=== PATIENT | female | born 1935 | race Caucasian/White ===

== ENCOUNTER 2024-05-24 09:25 | Emergency (ER) | payer OTHER, MEDICARE ==
[2024-05-24 09:49] LABS: Absolute Eosinophils 0.1 K/uL (0-0.5); Absolute Lymphocytes (CBC) 1.4 K/uL (0.7-4.9); Absolute Monocytes 0.6 K/uL (0.1-1.3); Absolute Neutrophil 4.7 K/uL (1.8-8.0); Basophils % 0.6 % (0-1.3); Eosinophils % 1.1 % (0-4.4); Hematocrit 39.4 % (36.0-45.0); Hemoglobin 12.9 g/dL (12.0-15.0); Lymphocytes % 20.8 % (15.3-44.8); MCH 31.4 pg (27.0-35.0); MCHC 32.6 g/dL (32.0-36.0); MCV 96.1 fL (80-100); MPV 9.3 fL (7.6-11.3); Monocytes % 9.3 % (3.3-12.3); Neutrophils % 68.2 % (41.7-73.7); Nucleated Red Blood Cells % 0.1 % (0-0); Platelets 168 thou/uL (152-406); Red Cell Distribution Width 14.1 % (12.1-15.2)
[2024-05-24] MEDS ORDERED: NA CHLORIDE 0.9% 1,000 ML ONE (09:55)
[2024-05-24 09:57] LABS: PT Prothrombin Time 18.4 SECONDS (9.4-12.5); Protime INR 1.67
[2024-05-24 10:07] LABS: Albumin 3.4 g/dL (3.4-5.0); Albumin/Globulin Ratio 0.9 (1.1-1.8); Anion Gap 8.2 mEq/L (5.0-15.0); Bilirubin Direct 0.3 mg/dL (0-0.2); Bilirubin Indirect, Calculated 0.5 mg/dL (0.2-0.8); Bilirubin Total 0.8 mg/dL (0.2-1.0); Globulin 3.6 g/dL (2.3-3.5); Magnesium 2.3 mg/dL (1.6-2.4); Potassium 4.2 mEq/L (3.5-5.1); Troponin High Sensitivity 11.1 pg/mL (<58.9)
--- NOTE | 2024-05-24 10:43 | RAD REPORT ---
EXAMINATION: ONE VIEW CHEST XR CLINICAL INDICATION: COUGH TECHNIQUE: Frontal chest projection is submitted. Examination is limited by patient positioning and t echnique. COMPARISON: 07/12/2023 FINDINGS: Mild interstitial pulmonary edema is seen. The heart is mildly enlarged in size. No displaced fractur es identified. IMPRESSION: Mild CHF.
[2024-05-24 10:57] LABS: Thyroid Stimulating Hormone 4.76 uIU/mL (0.358-3.740)
[2024-05-24] MEDS ORDERED: METOPROLOL TAR 50 MG TAB ONE (11:02)
[2024-05-24] MEDS ORDERED: FUROSEMIDE 20 MG/ 2ML VIAL ONE (11:02)
[2024-05-24] MEDS ORDERED: METOPROLOL TARTRATE 5 MG/5 ML INJ IV ONE (11:02)
--- NOTE | 2024-05-24 11:54 | EDPHYS ---
Physician Documentation [facility] Name: Argenis Jacome Age: 88 yrs Sex: Female : 1935 Arrival Date: 05/24/2024 Time: 09:25 Bed 6 Private MD: ED Physician Ko Viera HPI: 05/24 11:45 This 88 yrs old Female presents to ER via Ambulatory with complaints of chester Weakness, Fast heart rate. 11:45 The patient presents to the emergency department with weakness of the. chester Historical: - Allergies: 10:54 Digoxin (unable to eat ); aa5 - Home Meds: 10:55 simvastatin 40 mg Oral tablet every day at bedtime [Active]; losartan 25 mg oral tablet aa5 daily [Active]; sertraline 25 mg oral tablet daily [Active]; Xarelto 10 mg oral tablet daily [Active]; 13:00 Metoprolol Tartrate Oral [Active]; aa5 - PMHx: 09:39 Atrial fibrillation; Depression; High Cholesterol; jl7 - Immunization history:: Adult Immunizations unknown. - Infectious Disease History:: Denies. - Social history:: Smoking status: Patient denies any tobacco usage or history of. ROS: 11:47 Constitutional: Negative for fever, chills, and weight loss, Eyes: Negative for injury, chester pain, redness, and discharge, ENT: Negative for injury, pain, and discharge, Neck: Negative for injury, pain, and swelling, Abdomen/GI: Negative for abdominal pain, nausea, vomiting, diarrhea, and constipation, Back: Negative for injury and pain, : Negative for injury, bleeding, discharge, and swelling, MS/Extremity: Negative for injury and deformity, Skin: Negative for injury, rash, and discoloration, Neuro: Negative for headache, weakness, numbness, tingling, and seizure, Psych: Negative for depression, anxiety, suicide ideation, homicidal ideation, and hallucinations, Allergy/Immunology: Negative for hives, rash, and allergies, Endocrine: Negative for neck swelling, polydipsia, polyuria, polyphagia, and marked weight changes, Hematologic/Lymphatic: Negative for swollen nodes, abnormal bleeding, and unusual bruising, 11:47 Cardiovascular: Positive for chest pain, palpitations, 11:47 Cardiovascular: Positive for 11:47 Respiratory: Positive for cough, with no reported sputum, shortness of breath, 11:49 Cardiovascular: Positive for chester Exam: 11:49 Constitutional: This is a well developed, well nourished patient who is awake, alert, chester and in no acute distress. Head/Face: Normocephalic, atraumatic. Eyes: Pupils equal round and reactive to light, extra-ocular motions intact. Lids and lashes normal. Conjunctiva and sclera are non-icteric and not injected. Cornea within normal limits. Periorbital areas with no swelling, redness, or edema. ENT: Nares patent. No nasal discharge, no septal abnormalities noted. Tympanic membranes are normal and external auditory canals are clear. Oropharynx with no redness, swelling, or masses, exudates, or evidence of obstruction, uvula midline. Mucous membranes moist. Neck: Trachea midline, no thyromegaly or masses palpated, and no cervical lymphadenopathy. Supple, full range of motion without nuchal rigidity, or vertebral point tenderness. No Meningismus. Chest/axilla: Normal chest wall appearance and motion. Nontender with no deformity. No lesions are appreciated. Abdomen/GI: Soft, non-tender, with normal bowel sounds. No distension or tympany. No guarding or rebound. No evidence of tenderness throughout. Back: No spinal tenderness. No costovertebral tenderness. Full range of motion. Female : Normal external genitalia. Skin: Warm, dry with normal turgor. Normal color with no rashes, no lesions, and no evidence of cellulitis. MS/ Extremity: Pulses equal, no cyanosis. Neurovascular intact. Full, normal range of motion., bilateral aka Neuro: Awake and alert, GCS 15, oriented to person, place, time, and situation. Cranial nerves II-XII grossly intact. Motor strength 5/5 in all extremities. Sensory grossly intact. Cerebellar exam normal. Normal gait. Psych: Awake, alert, with orientation to person, place and time. Behavior, mood, and affect are within normal limits. 11:49 Cardiovascular: Rate: tachycardic, actual rate is 117 bpm, Rhythm: irregularly irregular, Pulses: Pulses are 4+ in bilateral radial, brachial, femoral, popliteal, posterior tibial and and dorsalis pedis arteries.. Heart sounds: normal, Edema: is not appreciated, JVD: is noted bilaterally, to 2 cm, 14:48 ECG was reviewed by the Attending Physician. [facility] Vital Signs: 09:37 BP 154 / 93; Pulse 115; Resp 20; Temp 97.1; Pulse Ox 97% ; Weight 53.98 kg; Height 5 jl7 ft. 5 in. ; Pain 0/10; 10:05 BP 147 / 106; Pulse 112; Resp 18 S; Pulse Ox 97% on R/A; aa5 11:32 BP 173 / 93; Pulse 117; Resp 16 S; Pulse Ox 99% on R/A; aa5 11:40 BP 143 / 93; Pulse 110; Resp 19 S; Pulse Ox 99% on R/A; aa5 12:00 BP 140 / 72; Pulse 106; Resp 16 S; Pulse Ox 99% on R/A; aa5 12:56 BP 132 / 90; Pulse 104; Resp 18 S; Pulse Ox 99% on R/A; aa5 13:30 BP 140 / 92; Pulse 105; Resp 16 S; Temp 98(TE); Pulse Ox 96% on R/A; aa5 14:15 BP 148 / 97; Pulse 97; Resp 16 S; Pulse Ox 97% on R/A; aa5 09:37 Body Mass Index 19.80 (53.98 kg, 165.1 cm) [facility] 09:37 Pain Scale: Adult 7 MDM: 09:29 Medical Screening Exam initiated [facility] 11:51 Data reviewed: vital signs, nurses notes, lab test result(s), EKG, radiologic studies, [facility] plain films. Consideration of Admission/Observation Escalation of care including admission/observation considered. I considered the following discharge prescriptions or medication management in the emergency department Medications were administered in the Emergency Department. See MAR. Independent interpretation of the following test(s) in the Emergency Department EKG: See my EKG interpretation above. Test considered but Not performed: Ultrasound no 2 d echo. Historians other than the Patient: Family Member: son well informed. Care significantly affected by the following chronic conditions: Hypertension, Congestive Heart Failure, a fib. Counseling: I had a detailed discussion with the patient and/or guardian regarding the historical points, exam findings, and any diagnostic results supporting the discharge/admit diagnosis, lab results, the need to transfer to another facility, for higher level of care, [facility] does not immediately have the required specialist, pts choice dr alanis. 05/24 09:31 Order name: Basic Metabolic Panel; Complete Time: 10:12 [facility] 05/24 09:31 Order name: CBC with Diff; Complete Time: 10:12 [facility] 05/24 09:31 Order name: LFT's; Complete Time: 10:12 [facility] 05/24 09:31 Order name: Magnesium; Complete Time: 10:12 [facility] 05/24 09:31 Order name: NT PRO-BNP; Complete Time: 10:12 [facility] 05/24 09:31 Order name: PT-INR; Complete Time: 10:12 [facility] 05/24 09:31 Order name: Troponin HS; Complete Time: 10:12 [facility] 05/24 09:31 Order name: Urinalysis w/ reflexes [facility] 05/24 09:31 Order name: Lipase; Complete Time: 10:12 [facility] 05/24 09:41 Order name: TSH; Complete Time: 11:44 [facility] 05/24 10:59 Order name: T4 Free; Complete Time: 11:44 EDMS 05/24 09:31 Order name: XRAY Chest (1 view); Complete Time: 10:54 [facility] 05/24 09:31 Order name: Cardiac monitoring; Complete Time: 09:44 [facility] 05/24 09:31 Order name: EKG - Nurse/Tech; Complete Time: 09:44 [facility] 05/24 09:31 Order name: IV Saline Lock; Complete Time: 09:44 [facility] 05/24 09:31 Order name: Labs collected and sent; Complete Time: 09:44 [facility] 05/24 09:31 Order name: O2 Per Protocol; Complete Time: 09:44 [facility] 05/24 09:31 Order name: O2 Sat Monitoring; Complete Time: 09:44 [facility] EC:48 Rate is 105 beats/min. Rhythm is regular. QRS [place] is Normal. CA interval is normal. [facility] QRS interval is normal. QT interval is normal. No Q waves. T waves are Normal. No ST changes noted. Clinical impression: Atrial Fibrillation. Interpreted by me. Reviewed by me. Administered Medications: 10:13 Discontinued: ns 0.9% 1000 ml IV at 1000 ml once; to be given as a bolus over 60 minutescha 09:59 Drug: NS 0.9% IV 1000 ml IV at 1000 ml once; to be given as a bolus over 60 minutes aa5 Route: IV; Rate: 1000 ml; Site: right forearm; 10:16 Follow up: IV Status: Order to discontinue infusion; IV Intake: 150ml aa5 11:08 Drug: Furosemide IVP 20 mg IVP once; give over 2 minutes Route: IVP; Site: right aa5 forearm; 11:15 Follow up: Response: No adverse reaction aa5 11:10 Drug: Metoprolol PO 50 mg PO once Route: PO; aa5 11:45 Follow up: Response: No adverse reaction aa5 11:10 Not Given (Duplicate Order): metoprolol5 mg IVP once; Hold for SBP <100 or HR <60. aa5 11:11 Drug: Metoprolol IVP 5 mg IVP every 5 minutes; Hold for SBP < 100 or HR < 60. x3 Route: aa5 IVP; Site: right forearm; 11:33 Drug: Metoprolol IVP 5 mg IVP every 5 minutes; Hold for SBP < 100 or HR < 60. x3 Route: aa5 IVP; Site: right forearm; 11:40 Drug: Metoprolol IVP 5 mg IVP every 5 minutes; Hold for SBP < 100 or HR < 60. x3 Route: aa5 IVP; Site: right forearm; 11:45 Follow up: Response: No adverse reaction aa5 Disposition Summary: 05/24/24 11:54 Transfer Ordered Notes: Transfer Location: [facility] System chester Reason: Higher level of care chester Condition: Stable chester Problem: new chester Symptoms: have improved chester Accepting Physician: to dr alanis [facility](05/24/24 15:28) aa5 Diagnosis - Paroxysmal atrial fibrillation - with rvr chester - Dyspnea chester - Combined systolic (congestive) and diastolic (congestive) heart failure chester Forms: - Medication Reconciliation Form chester - SBAR form chester Signatures: Dispatcher [employer] EDMS Ko Viera MD MD cha Calderon, Audri, RN RN aa5 Cain Cueva RN RN jl7 Corrections: (The following items were deleted from the chart) 09: 09:31 BASIC METABOLIC PANEL+C.LAB.BRZ ordered. EDMS EDMS 09:31 09:31 CBC+H.LAB.BRZ ordered. EDMS EDMS 09:31 09:31 HEPATIC FUNCTION+C.LAB.BRZ ordered. EDMS EDMS 09: 09:31 MAGNESIUM+C.LAB.BRZ ordered. EDMS EDMS 09:31 09:31 PROBNP+C.LAB.BRZ ordered. EDMS EDMS 09:31 PROTIME (+INR)+COAG.LAB.BRZ ordered. EDMS EDMS 09:31 Troponin High Sensitivity+C.LAB.BRZ ordered. EDMS EDMS : 09:31 Urinalysis+U.LAB.BRZ ordered. EDMS EDMS 09:31 LIPASE+C.LAB.BRZ ordered. EDMS EDMS 09:31 Chest Single View+RAD.RAD.BRZ ordered. EDMS EDMS 10:55 09:39 Allergies: No Known Allergies; jl7 aa5 15:28 11:[address] alanis [facility] aa5
--- NOTE | 2024-05-24 11:54 | ER ---
Nurse's Notes [facility] Name: Argenis Jacome Age: 88 yrs Sex: Female : 1935 Arrival Date: 05/24/2024 Time: 09:25 Bed 6 Private MD: Diagnosis: Paroxysmal atrial fibrillation-with rvr;Dyspnea;Combined systolic (congestive) and diastolic (congestive) heart failure Presentation: 05/24 09:37 Chief complaint: Patient states: Fast HR since last night, hx of A. Fib. Coronavirus jl7 screen: At this time, the client does not indicate any symptoms associated with coronavirus-19. Ebola Screen: No symptoms or risks identified at this time. Initial Sepsis Screen: Does the patient meet any 2 criteria? No. Patient's initial sepsis screen is negative. Does the patient have a suspected source of infection? No. Patient's initial sepsis screen is negative. Risk Assessment: Do you want to hurt yourself or someone else? Patient reports no desire to harm self or others. Onset of symptoms was May 23, 2024. 09:37 Method Of Arrival: Ambulatory jl7 09:37 Acuity: RAND 2 jl7 Triage Assessment: 09:40 General: Appears in no apparent distress. uncomfortable, Behavior is calm, cooperative, jl7 appropriate for age. Pain: Denies pain. Cardiovascular: Patient's skin is warm and dry. Rhythm is atrial fibrillation. Historical: - Allergies: 10:54 Digoxin (unable to eat ); aa5 - Home Meds: 10:55 simvastatin 40 mg Oral tablet every day at bedtime [Active]; losartan 25 mg oral tablet aa5 daily [Active]; sertraline 25 mg oral tablet daily [Active]; Xarelto 10 mg oral tablet daily [Active]; 13:00 Metoprolol Tartrate Oral [Active]; aa5 - PMHx: 09:39 Atrial fibrillation; Depression; High Cholesterol; jl7 - Immunization history:: Adult Immunizations unknown. - Infectious Disease History:: Denies. - Social history:: Smoking status: Patient denies any tobacco usage or history of. Screenin:02 [facility] ED Fall Risk Assessment (Adult) History of falling in the last 3 months, aa5 including since admission No falls in past 3 months (0 pts) Confusion or Disorientation No (0 pts) Intoxicated or Sedated No (0 pts) Impaired Gait Yes (1 pt) Mobility Assist Device Used Yes (1 pt) Altered Elimination Yes (1 pt) Score/Fall Risk Level 3 or more points = High Risk Oriented to surroundings, Maintained a safe environment, Educated pt \T\ family on fall prevention, incl call for assistance when getting out of bed, Assessed \T\ reinforced patient's understanding of fall precautions, Hourly rounding (assess needs \T\ fall precautionary measures) done. Abuse screen: Denies threats or abuse. Nutritional screening: No deficits noted. Tuberculosis screening: No symptoms or risk factors identified. Assessment: 09:40 General: Appears comfortable, Behavior is calm, cooperative. Pain: Denies pain. Neuro: aa5 Level of Consciousness is awake, alert, obeys commands, Oriented to person, place, time, situation. Cardiovascular: Heart tones S1 S2 present Rhythm is atrial fibrillation with rapid ventricular response. Respiratory: Airway is patent Respiratory effort is even, unlabored, Respiratory pattern is regular, symmetrical. GI: Abdomen is non-distended, Patient currently denies nausea, vomiting. : No signs and/or symptoms were reported regarding the genitourinary system. EENT: No signs and/or symptoms were reported regarding the EENT system. Derm: Skin is pink, warm \T\ dry. Musculoskeletal: Range of motion: intact in all extremities. 09:59 Reassessment: Patient is alert, oriented x 3, equal unlabored respirations, skin aa5 warm/dry/pink. 10:56 Reassessment: Pt's son reports pt used to take Flecainide 50mg but was discontinued by aa5 plastics repairer back in November 2023, Dr. Viera aware. . 11:40 Reassessment: Patient is alert, oriented x 3, equal unlabored respirations, skin aa5 warm/dry/pink. Cardiovascular: Rhythm is atrial fibrillation with rapid ventricular response. 11:45 Reassessment: Pt assisted to bedside commode, pt voided, pt placed back in bed. . aa5 12:56 Reassessment: Patient is alert, oriented x 3, equal unlabored respirations, skin aa5 warm/dry/pink. Cardiovascular: Rhythm is atrial fibrillation with rapid ventricular response. 13:30 Reassessment: Patient is alert, oriented x 3, equal unlabored respirations, skin aa5 warm/dry/pink. Pt assisted with bedside commode, pt voided. Pt now back in bed. . 14:25 Reassessment: Patient is alert, oriented x 3, equal unlabored respirations, skin aa5 warm/dry/pink. Patient denies pain at this time. Denies any complaints. . 15:07 Reassessment: Report given to Stacy (ER nurse) at [facility]. Currently aa5 awaiting EMS for transfer, pt and family aware of wait time. . 15:25 Reassessment: Patient is alert, oriented x 3, equal unlabored respirations, skin aa5 warm/dry/pink. Vital Signs: 09:37 BP 154 / 93; Pulse 115; Resp 20; Temp 97.1; Pulse Ox 97% ; Weight 53.98 kg; Height 5 jl7 ft. 5 in. ; Pain 0/10; 10:05 BP 147 / 106; Pulse 112; Resp 18 S; Pulse Ox 97% on R/A; aa5 11:32 BP 173 / 93; Pulse 117; Resp 16 S; Pulse Ox 99% on R/A; aa5 11:40 BP 143 / 93; Pulse 110; Resp 19 S; Pulse Ox 99% on R/A; aa5 12:00 BP 140 / 72; Pulse 106; Resp 16 S; Pulse Ox 99% on R/A; aa5 12:56 BP 132 / 90; Pulse 104; Resp 18 S; Pulse Ox 99% on R/A; aa5 13:30 BP 140 / 92; Pulse 105; Resp 16 S; Temp 98(TE); Pulse Ox 96% on R/A; aa5 14:15 BP 148 / 97; Pulse 97; Resp 16 S; Pulse Ox 97% on R/A; aa5 09:37 Body Mass Index 19.80 (53.98 kg, 165.1 cm) jl7 09:37 Pain Scale: Adult jl7 ED Course: 09:26 Patient arrived in ED. mr 09:29 Ko Viera MD is Attending Physician. chester 09:31 Teresita Escobar, PINA is Primary Nurse. aa5 09:39 Triage completed. jl7 09:40 Arm band placed on right wrist. jl7 09:40 Patient has correct armband on for positive identification. Placed in gown. Bed in low aa5 position. Call light in reach. Side rails up X2. Adult w/ patient. Client placed on continuous cardiac and pulse oximetry monitoring. NIBP monitoring applied. environmental monitoring specialist on. Pulse ox on. NIBP on. 09:44 Initial lab(s) drawn, by me, sent to lab. Inserted saline lock: 20 gauge in right aa5 forearm, using aseptic technique. Blood collected. Flushed with 10 mL NS. 10:03 No provider procedures requiring assistance completed. aa5 10:06 XRAY Chest (1 view) In Process Unspecified. EDMS 13:10 \T\1219 transfer initiated by Artemio Borja from the [facility] transfer center/ \T\ 1236 Dr. windy Whitt accepted the patient without conference with Dr. Viera/ \T\1240 Administrative approval given by Huong Whitt, patient has been accepted to [facility]/ report to be called to [phone]. 15:25 Patient transferred, IV remains in place. aa5 Administered Medications: 10:13 Discontinued: ns 0.9% 1000 ml IV at 1000 ml once; to be given as a bolus over 60 minutescha 09:59 Drug: NS 0.9% IV 1000 ml IV at 1000 ml once; to be given as a bolus over 60 minutes aa5 Route: IV; Rate: 1000 ml; Site: right forearm; 10:16 Follow up: IV Status: Order to discontinue infusion; IV Intake: 150ml aa5 11:08 Drug: Furosemide IVP 20 mg IVP once; give over 2 minutes Route: IVP; Site: right aa5 forearm; 11:15 Follow up: Response: No adverse reaction aa5 11:10 Drug: Metoprolol PO 50 mg PO once Route: PO; aa5 11:45 Follow up: Response: No adverse reaction aa5 11:10 Not Given (Duplicate Order): metoprolol5 mg IVP once; Hold for SBP <100 or HR <60. aa5 11:11 Drug: Metoprolol IVP 5 mg IVP every 5 minutes; Hold for SBP < 100 or HR < 60. x3 Route: aa5 IVP; Site: right forearm; 11:33 Drug: Metoprolol IVP 5 mg IVP every 5 minutes; Hold for SBP < 100 or HR < 60. x3 Route: aa5 IVP; Site: right forearm; 11:40 Drug: Metoprolol IVP 5 mg IVP every 5 minutes; Hold for SBP < 100 or HR < 60. x3 Route: aa5 IVP; Site: right forearm; 11:45 Follow up: Response: No adverse reaction aa5 Medication: 10:03 VIS not applicable for this client. aa5 Intake: 10:16 IV: 150ml; Total: 150ml. aa5 Output: 12:56 Urine: 350ml (Voided); Total: 350ml. aa5 Outcome: 11:54 ER care complete, transfer ordered by . [facility] 15:25 Transferred by ground EMS Transfer form completed. X-rays sent w/ patient. Note: [facility] aa5 [facility]. Report was given to [facility] 15:25 Condition: stable aa 15:25 Instructed on the need for transfer, 15:28 Patient left the ED. aa5 Signatures: Dispatcher [employer] EDMS Ko Viera MD MD cha Rivera, Mary, Reg Reg mr ShawnTeresita, RN RN aa5 Cain Cueva RN RN [email or web address] Palak Whatley Corrections: (The following items were deleted from the chart) 10:55 09:39 Allergies: No Known Allergies; chrissy aaBenjamin
[2024-05-24 13:53] LABS: Sqamous Epithelial None Seen /HPF (None Seen); Urine Bacteria <20 /HPF (<20); Urine Bilirubin NEGATIVE (Negative); Urine Blood Negative (Negative); Urine Clarity Clear (Clear); Urine Color Light-Yellow (Yellow); Urine Crystals Unidentified Few /HPF (None Seen); Urine Culture Reflex Order NOT NEEDED; Urine Glucose NEGATIVE (Negative); Urine Ketones NEGATIVE (Negative); Urine Microscopic Reflex YN ORDER UMIC; Urine Nitrite NEGATIVE (Negative); Urine Protein NEGATIVE (Negative); Urine RBC <5 /HPF (None Seen); Urine Urobilinogen Normal (Normal); Urine WBC <5 /HPF (<5)
[2024-05-24 15:44] VITALS: TEMP 97.1
[2024-05-24 15:55] VITALS: O2SAT 99
[2024-05-24 15:58] VITALS: BP 132/90
--- NOTE | 2024-05-27 13:45 | EKG ---
Test Date: 2024-05-24 Test Time: 09:34:26 Academic Tutor: KARL MEASUREMENT RESULTS: Intervals: Rate: 105 MA: QRSD: 80 QT: 364 QTc: 481 Milmay: P: MA: QRS: 79 T: 85 INTERPRETIVE STATEMENTS: Atrial fibrillation with rapid ventricular response Abnormal ECG Compared to ECG 07/12/2023 11:20:05 Sinus bradycardia no longer present Left ventricular hypertrophy no longer present Electronically Signed On 05-27-24 13:38:15 CORDUROY CUTTER OPERATOR by Bruce Carrillo
== END 2024-05-24 15:28 | disposition short-term general hospital (02) ==
LOC: ER 09:25
DX: I48.0 Paroxysmal atrial fibrillation (principal); I50.40 Unspecified combined systolic (congestive) and diastolic (congestive) heart failure; R06.00 Dyspnea, unspecified; E78.00 Pure hypercholesterolemia, unspecified; F32.A Depression, unspecified; Z79.899 Other long term (current) drug therapy
CPT/HCPCS: 93005; 85025; 81001; 80048; 36415; 83735; 85610; 80076; 84443; 84484; 84439; 83690; 83880; 71045; 96375; 96374; 99285; J1940; J7030

== ENCOUNTER 2024-06-11 09:23 | Emergency (ER) | payer OTHER, MEDICARE ==
[2024-06-11 10:14] LABS: Absolute Basophils 0.1 K/uL (0-0.5); Absolute Eosinophils 0.1 K/uL (0-0.5); Absolute Lymphocytes (CBC) 1.3 K/uL (0.7-4.9); Absolute Monocytes 0.4 K/uL (0.1-1.3); Absolute Neutrophil 2.7 K/uL (1.8-8.0); Basophils % 1.2 % (0-1.3); Eosinophils % 1.5 % (0-4.4); Hematocrit 44.7 % (36.0-45.0); Hemoglobin 14.6 g/dL (12.0-15.0); Lymphocytes % 29.1 % (15.3-44.8); MCHC 32.6 g/dL (32.0-36.0); MCV 95.1 fL (80-100); MPV 9.3 fL (7.6-11.3); Monocytes % 8.2 % (3.3-12.3); Nucleated Red Blood Cells % 0.2 % (0-0); Platelets 163 thou/uL (152-406); Red Cell Distribution Width 14.1 % (12.1-15.2)
[2024-06-11 10:17] LABS: PT Prothrombin Time 15.5 SECONDS (9.4-12.5); Protime INR 1.4
[2024-06-11 10:33] LABS: Albumin 3.7 g/dL (3.4-5.0); Albumin/Globulin Ratio 0.9 (1.1-1.8); Anion Gap 9.3 mEq/L (5.0-15.0); Bilirubin Direct 0.2 mg/dL (0-0.2); Bilirubin Indirect, Calculated 0.5 mg/dL (0.2-0.8); Bilirubin Total 0.7 mg/dL (0.2-1.0); Magnesium 2.4 mg/dL (1.6-2.4); Potassium 4.3 mEq/L (3.5-5.1); Protein, Total 7.7 g/dL (6.4-8.2); Troponin High Sensitivity 12.7 pg/mL (<58.9)
--- NOTE | 2024-06-11 10:54 | ER ---
Nurse's Notes [facility] Name: Argenis Jacome Age: 88 yrs Sex: Female : 1935 Arrival Date: 06/11/2024 Time: 09:23 Bed 2 Private MD: Diagnosis: Chronic atrial fibrillation Presentation: 06/11 09:42 Chief complaint: Patient's son or daughter states: is having afib and high bp , was iw here on for the same thing, she just got out of rehab. Coronavirus screen: At this time, the client does not indicate any symptoms associated with coronavirus-19. Ebola Screen: No symptoms or risks identified at this time. Initial Sepsis Screen: Does the patient meet any 2 criteria? No. Patient's initial sepsis screen is negative. Does the patient have a suspected source of infection? No. Patient's initial sepsis screen is negative. Risk Assessment: Do you want to hurt yourself or someone else? Patient reports no desire to harm self or others. Onset of symptoms was June 11, 2024. 09:42 Method Of Arrival: Ambulatory iw 09:42 Acuity: RAND 3 iw Historical: - Allergies: 09:44 Digoxin (unable to eat); iw - PMHx: 09:44 Atrial fibrillation; High Cholesterol; Depression; iw - PSHx: 09:44 knee; iw - Immunization history:: Adult Immunizations not up to date. - Infectious Disease History:: Denies. - Social history:: Smoking status: Patient denies any tobacco usage or history of. Screenin:03 [facility] ED Fall Risk Assessment (Adult) History of falling in the last 3 months, db including since admission No falls in past 3 months (0 pts) Confusion or Disorientation No (0 pts) Intoxicated or Sedated No (0 pts) Impaired Gait No (0 pts) Mobility Assist Device Used No (0 pt) Altered Elimination No (0 pt) Score/Fall Risk Level 0 - 2 = Low Risk Oriented to surroundings, Maintained a safe environment. Abuse screen: Denies threats or abuse. Denies injuries from another. Nutritional screening: No deficits noted. Tuberculosis screening: No symptoms or risk factors identified. Assessment: 10:03 Reassessment: Patient appears in no apparent distress at this time. Patient and/or db family updated on plan of care and expected duration. Pain level reassessed. Patient is alert, oriented x 3, equal unlabored respirations, skin warm/dry/pink. General: Appears in no apparent distress. comfortable, Behavior is calm, cooperative. Pain: Denies pain. Neuro: Level of Consciousness is awake, alert, obeys commands, Oriented to person, place, time, situation. Respiratory: Airway is patent Respiratory effort is even, unlabored, Respiratory pattern is regular, symmetrical. 11:19 Reassessment: Patient appears in no apparent distress at this time. Patient and/or iw family updated on plan of care and expected duration. Pain level reassessed. Patient is alert, oriented x 3, equal unlabored respirations, skin warm/dry/pink. Vital Signs: 09:42 BP 111 / 63; Pulse 101; Resp 18; Temp 97.8; Pulse Ox 98% on R/A; Weight 53.52 kg; iw Height 5 ft. 3 in. ; Pain 0/10; 09:50 BP 118 / 70; Pulse 83; Resp 16; Pulse Ox 98% on R/A; db 09:42 Body Mass Index 20.90 (53.52 kg, 160.02 cm) iw 09:42 Pain Scale: Adult iw ED Course: 09:27 Patient arrived in ED. al6 09:28 Cori Machuca MD is Attending Physician. sp3 09:44 Triage completed. iw 09:45 Arm band placed on. iw 09:51 Margarita Malik, RN is Primary Nurse. db 10:02 EKG done. db 10:10 Warm blanket given. Verbal reassurance given. am7 10:11 Inserted saline lock: 20 gauge in left Blood collected. Flushed with 10 mL NS. am7 10:46 XRAY Chest (1 view) In Process Unspecified. EDMS 10:54 Latricia Buckley MD is Referral Physician. sp3 11:19 Patient has correct armband on for positive identification. Provided Education on: . iw 11:19 No provider procedures requiring assistance completed. IV discontinued, intact, iw bleeding controlled, No redness/swelling at site. Pressure dressing applied. Administered Medications: No medications were administered Medication: 11:19 VIS not applicable for this client. iw Outcome: 10:54 Discharge ordered by MD. sp3 11:19 Discharged to home ambulatory, with family, iw 11:19 Condition: good 11:19 Discharge instructions given to patient, family, Instructed on discharge instructions, follow up and referral plans. Demonstrated understanding of instructions, follow-up care, 11:20 Patient left the ED. iw Signatures: Dispatcher [employer] Gabriela Pyle RN RN iw Patel, Setul, MD MD sp3 Margarita Malik RN RN db Ava Alexandre am7 Paola Lozada al6
--- NOTE | 2024-06-11 10:54 | EDPHYS ---
Physician Documentation [facility] Name: Argenis Jacome Age: 88 yrs Sex: Female : 1935 Arrival Date: 06/11/2024 Time: 09:23 Bed 2 Private MD: ED Physician Cori Machuca HPI: 06/11 10:00 This 88 yrs old Female presents to ER via Ambulatory with complaints of afib sp3 palpitations. 10:00 88-year-old female with history of atrial fibrillation, hyperlipidemia presents with sp3 son for chief complaint tachycardia and atrial fibrillation. Patient was admitted here in May and transferred to [facility] where she was consulted by Dr. Elder and then sent to halfway for rehabilitation. She is currently on Eliquis and flecainide for her atrial fibrillation. Patient denies any significant symptoms including chest pain, shortness of breath, headache, fever, URI symptoms, or any other signs or symptoms on ROS at this time.. 10:52 . sp3 Historical: - Allergies: 09:44 Digoxin (unable to eat); iw - PMHx: 09:44 Atrial fibrillation; High Cholesterol; Depression; iw - PSHx: 09:44 knee; iw - Immunization history:: Adult Immunizations not up to date. - Infectious Disease History:: Denies. - Social history:: Smoking status: Patient denies any tobacco usage or history of. ROS: 10:02 Constitutional: Negative for fever, chills, and weight loss, Eyes: Negative for injury, sp3 pain, redness, and discharge, ENT: Negative for injury, pain, and discharge, Neck: Negative for injury, pain, and swelling, Respiratory: Negative for shortness of breath, cough, wheezing, and pleuritic chest pain, Abdomen/GI: Negative for abdominal pain, nausea, vomiting, diarrhea, and constipation, Back: Negative for injury and pain, MS/Extremity: Negative for injury and deformity, Skin: Negative for injury, rash, and discoloration, Neuro: Negative for headache, weakness, numbness, tingling, and seizure, Psych: Negative for depression, anxiety, suicide ideation, homicidal ideation, and hallucinations, Allergy/Immunology: Negative for hives, rash, and allergies, Endocrine: Negative for neck swelling, polydipsia, polyuria, polyphagia, and marked weight changes, Hematologic/Lymphatic: Negative for swollen nodes, abnormal bleeding, and unusual bruising, 10:02 All other systems are negative, Exam: 10:02 Constitutional: This is a well developed, well nourished patient who is awake, alert, sp3 and in no acute distress. Head/Face: Normocephalic, atraumatic. Eyes: Pupils equal round and reactive to light, extra-ocular motions intact. Lids and lashes normal. Conjunctiva and sclera are non-icteric and not injected. Cornea within normal limits. Periorbital areas with no swelling, redness, or edema. ENT: Nares patent. No nasal discharge, no septal abnormalities noted. External auditory canals are clear. Oropharynx with no redness, swelling, or masses, exudates, or evidence of obstruction, uvula midline. Mucous membranes moist. Neck: Trachea midline, no thyromegaly or masses palpated, and no cervical lymphadenopathy. Supple, full range of motion without nuchal rigidity, or vertebral point tenderness. No Meningismus. Chest/axilla: Normal chest wall appearance and motion. Nontender with no deformity. No lesions are appreciated. Respiratory: Lungs have equal breath sounds bilaterally, clear to auscultation and percussion. No rales, rhonchi or wheezes noted. No increased work of breathing, no retractions or nasal flaring. Abdomen/GI: Soft, non-tender, with normal bowel sounds. No distension or tympany. No guarding or rebound. No evidence of tenderness throughout. Back: No spinal tenderness. No costovertebral tenderness. Full range of motion. Skin: Warm, dry with normal turgor. Normal color with no rashes, no lesions, and no evidence of cellulitis. MS/ Extremity: Pulses equal, no cyanosis. Neurovascular intact. Full, normal range of motion. Neuro: Awake and alert, GCS 15, oriented to person, place, time, and situation. Cranial nerves II-XII grossly intact. Motor strength 5/5 in all extremities. Sensory grossly intact. Cerebellar exam normal. Normal gait. Psych: Awake, alert, with orientation to person, place and time. Behavior, mood, and affect are within normal limits. 10:02 ECG was reviewed by the Attending Physician. EKG demonstrates atrial fibrillation with ventricular response at 81 bpm with a QTc of [address]'s ST changes without evidence of acute ischemia. 10:03 Cardiovascular: Irregularly irregular rhythm at 80 bpm, sp3 Vital Signs: 09:42 BP 111 / 63; Pulse 101; Resp 18; Temp 97.8; Pulse Ox 98% on R/A; Weight 53.52 kg; iw Height 5 ft. 3 in. ; Pain 0/10; 09:50 BP 118 / 70; Pulse 83; Resp 16; Pulse Ox 98% on R/A; db 09:42 Body Mass Index 20.90 (53.52 kg, 160.02 cm) iw 09:42 Pain Scale: Adult iw MDM: 09:42 Medical Screening Exam initiated sp3 10:03 Data reviewed: vital signs, nurses notes, lab test result(s), EKG, radiologic studies. sp3 ED course: No current RVR from atrial fibrillation. Differential diagnosis includes A-fib with RVR versus normal A-fib variant versus other cardiac process including ACS. We will obtain EKG, chest x-ray and general labs. If workup negative we will safely discharge patient home to continued outpatient follow-up.. 10:53 ED course: Full workup negative including troponin. BNP at 6000 however chest x-ray is sp3 clean and patient is in no distress whatsoever. Cardiomegaly on chest x-ray otherwise clear. I discussed the case with Dr. Buckley who agrees patient can be discharged home and she will follow-up with him in his office early next week.. 06/11 09:47 Order name: Basic Metabolic Panel; Complete Time: 10:33 3 06/11 09:47 Order name: CBC with Diff; Complete Time: 10:33 3 06/11 09:47 Order name: LFT's; Complete Time: 10:33 sp3 06/11 09:47 Order name: Magnesium; Complete Time: 10:33 3 06/11 09:47 Order name: NT PRO-BNP; Complete Time: 10:33 3 06/11 09:47 Order name: PT-INR; Complete Time: 10:33 3 06/11 09:47 Order name: Troponin HS; Complete Time: 10:33 3 06/11 09:47 Order name: XRAY Chest (1 view) sp3 06/11 09:47 Order name: Cardiac monitoring; Complete Time: 10:02 3 06/11 09:47 Order name: EKG - Nurse/Tech; Complete Time: 10:02 sp3 06/11 09:47 Order name: IV Saline Lock; Complete Time: 10:02 sp3 06/11 09:47 Order name: Labs collected and sent; Complete Time: 10:02 sp3 06/11 09:47 Order name: O2 Per Protocol; Complete Time: 10:02 sp3 06/11 09:47 Order name: O2 Sat Monitoring; Complete Time: 10:02 sp3 Administered Medications: No medications were administered Disposition Summary: 06/11/24 10:54 Discharge Ordered Notes: Location: Home sp3 Condition: Stable sp3 Diagnosis - Chronic atrial fibrillation sp3 Followup: sp3 - With: Latricia Buckley MD - When: Upon discharge from the Emergency Department - Reason: Continuance of care Discharge Instructions: - Discharge Summary Sheet sp3 - Atrial Fibrillation sp3 Forms: - Medication Reconciliation Form sp3 - Antibiotic Education sp3 - Prescription Opioid Use sp3 - Patient Portal Instructions sp3 - Leadership Thank You Letter sp3 Signatures: Dispatcher [employer] Gabriela Pyle RN RN iw Cori Machuca MD MD sp3 Corrections: (The following items were deleted from the chart) 09:48 09:48 BASIC METABOLIC PANEL+C.LAB.BRZ ordered. EDMS EDMS 09:48 09:48 CBC+H.LAB.BRZ ordered. EDMS EDMS 09:48 09:48 HEPATIC FUNCTION+C.LAB.BRZ ordered. EDMS EDMS 09:48 09:48 MAGNESIUM+C.LAB.BRZ ordered. EDMS EDMS 09:48 09:48 PROBNP+C.LAB.BRZ ordered. EDMS EDMS 09:48 09:48 PROTIME (+INR)+COAG.LAB.BRZ ordered. EDMS EDMS 09:48 09:48 Troponin High Sensitivity+C.LAB.BRZ ordered. EDMS EDMS 09:48 09:48 Chest Single View+RAD.RAD.BRZ ordered. EDMS EDMS 10:53 10:52 Full workup negative including troponin. BNP at 6000 however chest x-ray is clean sp3 and patient is in no distress whatsoever. Cardiomegaly on chest x-ray otherwise clear. I discussed the case with Dr. Buckley who agrees patient can be discharged home and she will follow-up with him in his office early next week.. sp3
--- NOTE | 2024-06-11 12:30 | RAD REPORT ---
EXAMINATION: ONE VIEW CHEST XR CLINICAL INDICATION: Female, 88 years old.,PALPITATIONS TECHNIQUE: Frontal chest projection is submitted. Examination is limited by patient positioning and t echnique. COMPARISON: 05/24/2024. FINDINGS: The lungs are diffusely emphysematous. Interval partial improvement of aeration in the costophrenic a ngles particularly on the left. No new focal airspace opacities. No pneumothorax or sizable effusion. The heart is upper limit of normal in size. Mediastinal contours are unremarkable. IMPRESSION: Partial improvement of aeration in the costophrenic angles particularly on the left. No other acute i ntrathoracic abnormalities.
[2024-06-14 15:16] VITALS: BP 118/70; TEMP 97.8; O2SAT 98
--- NOTE | 2024-06-16 12:16 | EKG ---
Test Date: 2024-06-11 Test Time: 09:57:38 Deputy Clerk: DAGMAR MEASUREMENT RESULTS: Intervals: Rate: 81 ME: QRSD: 96 QT: 416 QTc: 483 [place]: P: ME: QRS: 50 T: 80 INTERPRETIVE STATEMENTS: Atrial fibrillation Prolonged QT Abnormal ECG Compared to ECG 05/24/2024 09:34:26 Prolonged QT interval now present Electronically Signed On 06-16-24 12:13:02 EXECUTIVE MARKETING ASSISTANT by Darwin Bethea
== END 2024-06-11 11:20 | disposition home or self-care (01) ==
LOC: ER 09:23
DX: I48.19 Other persistent atrial fibrillation (principal); E78.5 Hyperlipidemia, unspecified; R00.0 Tachycardia, unspecified; E78.00 Pure hypercholesterolemia, unspecified; F32.A Depression, unspecified
CPT/HCPCS: 36415; 71045; 80048; 80076; 83735; 83880; 84484; 85025; 85610; 93005; 99284

== ENCOUNTER 2024-06-17 20:26 | Inpatient (IN) | payer OTHER, MEDICARE ==
[2024-06-17 21:20] LABS: Absolute Eosinophils 0.1 K/uL (0-0.5); Absolute Lymphocytes (CBC) 2.4 K/uL (0.7-4.9); Absolute Monocytes 0.6 K/uL (0.1-1.3); Absolute Neutrophil 3.1 K/uL (1.8-8.0); Basophils % 0.6 % (0-1.3); Eosinophils % 1.8 % (0-4.4); Hemoglobin 12.9 g/dL (12.0-15.0); Lymphocytes % 37.7 % (15.3-44.8); MCH 31.1 pg (27.0-35.0); MCHC 33.1 g/dL (32.0-36.0); MPV 9.7 fL (7.6-11.3); Monocytes % 9.8 % (3.3-12.3); Neutrophils % 50.1 % (41.7-73.7); Nucleated Red Blood Cells % 0.1 % (0-0); Platelets 156 thou/uL (152-406); RBC Red Blood Cell Count 4.14 M/uL (3.86-4.86); Red Cell Distribution Width 13.5 % (12.1-15.2)
[2024-06-17] MEDS ORDERED: METOPROLOL TARTRATE 5 MG/5 ML INJ IV ONE ×2 (21:27→22:34)
[2024-06-17] MEDS ORDERED: NA CHLORIDE 0.9% 500 ML ONE (21:29)
[2024-06-17 21:43] LABS: ALT/SGPT 15 U/L (13-56); AST/SGOT 17 U/L (15-37); Albumin 3.1 g/dL (3.4-5.0); Albumin/Globulin Ratio 0.9 (1.1-1.8); Alkaline Phosphatase 42 U/L (45-117); Anion Gap 9.1 mEq/L (5.0-15.0); BUN Blood Urea Nitrogen 17 mg/dL (7-18); Bicarbonate 25 mEq/L (21-32); Bilirubin Total 0.4 mg/dL (0.2-1.0); Globulin 3.5 g/dL (2.3-3.5); Glomerular Filtration Rate 52 ml/min (=/>90); Glucose Level 81 mg/dL (74-106); Magnesium 2.1 mg/dL (1.6-2.4); NT PRO-BNP 1934 pg/mL (<450); Potassium 4.1 mEq/L (3.5-5.1); Protein, Total 6.6 g/dL (6.4-8.2); Sodium Level 139 mEq/L (136-145); Troponin High Sensitivity 7.9 pg/mL (<58.9)
--- NOTE | 2024-06-17 21:48 | RAD REPORT ---
EXAM: Chest Single View HISTORY: PALPITATIONS COMPARISON: 06/11/2024 FINDINGS: LUNGS/PLEURA: The lungs are clear. No pleural effusions or pneumothorax. No pulmonary edema. MEDIASTINUM: The mediastinal silhouette is within normal limits. CARDIAC: Similar cardiomegaly UPPER ABDOMEN: No significant abnormality. BONES: No acute abnormality. LINES/TUBES/OTHER: N/A IMPRESSION: No evidence of acute cardiopulmonary disease. Improved aeration from prior.
[2024-06-17 21:49] LABS: Bilirubin Direct < 0.2 mg/dL (0-0.2); Bilirubin Indirect, Calculated 0.2 mg/dL (0.2-0.8)
--- NOTE | 2024-06-17 22:17 | EDPHYS ---
Physician Documentation [facility] Name: Argenis Jacome Age: 88 yrs Sex: Female : 1935 Arrival Date: 06/17/2024 Time: 20:26 Bed 6 Private MD: Latricia Buckley C ED Physician Tayo Jj HPI: 06/17 21:34 This 88 yrs old Female presents to ER via Wheelchair with complaints of Blood Pressure rt Problem, afib. 21:34 Patient with history of A-fib presents to the ED with palpitations, shortness of rt breath, generalized weakness, worsening today. Recently, patient had an admission to [facility] for her A-fib, had a recent visit to the ER few days ago for A-fib that was controlled medications. States that symptoms have worsened. Denies chest pain, acute complaints, symptoms are moderate severity, no other aggravating alleviating factors.. Historical: - Allergies: 20:50 Digoxin (unable to eat); me1 - PMHx: 20:50 Depression; Atrial fibrillation; High Cholesterol; me1 - PSHx: 20:50 knee; me1 - Immunization history:: Adult Immunizations up to date. - Infectious Disease History:: Denies. - Social history:: Smoking status: Patient denies any tobacco usage or history of. - Family history:: not pertinent. ROS: 21:34 Constitutional: Negative for fever, chills, and weight loss, Abdomen/GI: Negative for rt abdominal pain, nausea, vomiting, diarrhea, and constipation, MS/Extremity: Negative for injury and deformity, Skin: Negative for injury, rash, and discoloration, 21:34 Cardiovascular: Positive for palpitations, Negative for chest pain, 21:34 Respiratory: Positive for shortness of breath, Negative for cough, 21:34 Neuro: Positive for weakness, Negative for altered mental status, Exam: 21:34 Constitutional: This is a well developed, well nourished patient who is awake, alert, rt and in no acute distress. Head/Face: Normocephalic, atraumatic. Chest/axilla: Normal chest wall appearance and motion. Nontender with no deformity. No lesions are appreciated. Cardiovascular: Regular rate and rhythm with a normal S1 and S2. No gallops, murmurs, or rubs. Normal PMI, no JVD. No pulse deficits. Respiratory: Lungs have equal breath sounds bilaterally, clear to auscultation and percussion. No rales, rhonchi or wheezes noted. No increased work of breathing, no retractions or nasal flaring. Abdomen/GI: Soft, non-tender, with normal bowel sounds. No distension or tympany. No guarding or rebound. No evidence of tenderness throughout. Skin: Warm, dry with normal turgor. Normal color with no rashes, no lesions, and no evidence of cellulitis. MS/ Extremity: Pulses equal, no cyanosis. Neurovascular intact. Full, normal range of motion. Neuro: Awake and alert, GCS 15, oriented to person, place, time, and situation. Cranial nerves II-XII grossly intact. Motor strength 5/5 in all extremities. Sensory grossly intact. Cerebellar exam normal. Normal gait. 21:34 ECG was reviewed by the Attending Physician. Vital Signs: 20:49 BP 123 / 78; Pulse 107; Resp 18; Temp 97.8; Pulse Ox 100% ; Weight 51.26 kg; Height 5 me1 ft. 3 in. ; Pain 0/10; 21:47 BP 115 / 71; Pulse 87; Resp 18 S; Pulse Ox 100% on R/A; ha1 22:30 BP 94 / 68; Pulse 101; Resp 18 S; Pulse Ox 100% on R/A; ha1 23:00 BP 122 / 79; Pulse 101; Resp 18 S; Pulse Ox 99% on R/A; ha1 20:49 Body Mass Index 20.02 (51.26 kg, 160.02 cm) me1 20:49 Pain Scale: Adult me1 MDM: 20:56 Medical Screening Exam initiated rt 23:11 Differential Diagnosis A-fib, dysrhythmia, anemia. rt 23:11 Data reviewed: vital signs, nurses notes, lab test result(s), EKG, radiologic studies. rt Consideration of Admission/Observation Patient was admitted/placed on observation. Management of patient was discussed with the following: Primary Care Provider: Agrees to admit. Independent interpretation of the following test(s) in the Emergency Department X-Ray: My interpretation is No consolidation seen on interpretation of x-ray images. Test considered but Not performed: CT: Low suspicion for pulmonary embolism, CT angiogram not indicated. Care significantly affected by the following chronic conditions: Atrial fibrillation. Counseling: I had a detailed discussion with the patient and/or guardian regarding the historical points, exam findings, and any diagnostic results supporting the discharge/admit diagnosis, lab results, radiology results, the need for further work-up and treatment in the hospital. Response to treatment: the patient's symptoms have markedly improved after treatment. 06/17 21:07 Order name: Basic Metabolic Panel; Complete Time: 21:50 rt 06/17 21:07 Order name: CBC with Diff; Complete Time: :50 rt 06/17 21:07 Order name: LFT's; Complete Time: 21:50 rt 06/17 21:07 Order name: Magnesium; Complete Time: 21:50 rt 06/17 21:07 Order name: NT PRO-BNP; Complete Time: :50 rt 06/17 21:07 Order name: Troponin HS; Complete Time: :50 rt 06/17 21:07 Order name: XRAY Chest (1 view); Complete Time: 21:50 rt 06/17 22:22 Order name: CONS Physician Consult EDNE 06/17 21:07 Order name: Cardiac monitoring; Complete Time: 21:15 rt 06/17 21:07 Order name: EKG - Nurse/Tech; Complete Time: 21:15 rt 06/17 21:07 Order name: IV Saline Lock; Complete Time: 21:15 rt 06/17 21:07 Order name: Labs collected and sent; Complete Time: 21:15 rt 06/17 21:07 Order name: O2 Per Protocol; Complete Time: 21:15 rt 06/17 21:07 Order name: O2 Sat Monitoring; Complete Time: 21:15 rt EC:34 Rate is 110 beats/min. Rhythm is irregularly irregular, A fib with No ectopy. QRS [place] rt is Normal. QRS interval is normal. QT interval is normal. No Q waves. No ST changes noted. Interpreted by me. Administered Medications: 21:30 Drug: NS 0.9% IV 500 ml IV at calculated rate once; to be given as a bolus over 30 ha1 minutes Route: IV; Rate: calculated rate; Site: right antecubital; 23:23 Follow up: Response: No adverse reaction; IV Status: Completed infusion; IV Intake: ha1 500ml 21:35 Drug: Metoprolol IVP 5 mg IVP every 5 minutes; Hold for SBP < 100 or HR < 60. x3 Route: ha1 IVP; Site: right antecubital; 21:48 Follow up: Response: No adverse reaction; Marked relief of symptoms ha1 22:00 Follow up: Response: No adverse reaction; Marked relief of symptoms ha1 22:29 Follow up: Response: No adverse reaction al5 22:45 Drug: Eliquis PO 5 mg PO once Route: PO; ha1 23:24 Follow up: Response: No adverse reaction ha1 22:57 Drug: Flecainide PO 50 mg PO once Route: PO; ha1 23:24 Follow up: Response: No adverse reaction ha1 Disposition Summary: 06/17/24 22:16 Hospitalization Ordered Notes: Hospitalization Status: Inpatient Admission rt Provider: Latricia Buckley rt Location: Telemetry/[facility] (Inpatient) rt Condition: Stable rt Problem: an acute exacerbation rt Symptoms: have improved rt Bed/Room Type: Standard rt Room Assignment: 208(06/17/24 22:48) sp Diagnosis - Atrial fibrillation with rapid ventricular rate rt Forms: - Medication Reconciliation Form rt - SBAR form rt - Leadership Thank You Letter rt Signatures: Dispatcher [employer] EDMS Rosetta Field sp Joaquina Ignacio RN RN ha1 Tayo Jj MD MD rt Joy Colindres RN RN me1 Genoveva Salmeron RN al5 Corrections: (The following items were deleted from the chart) 21:08 21:08 BASIC METABOLIC PANEL+C.LAB.BRZ ordered. EDMS EDMS 21:08 21:08 CBC+H.LAB.BRZ ordered. EDMS EDMS 21:08 21:08 HEPATIC FUNCTION+C.LAB.BRZ ordered. EDMS EDMS 21:08 21:08 MAGNESIUM+C.LAB.BRZ ordered. EDMS EDMS 21:08 21:08 PROBNP+C.LAB.BRZ ordered. EDMS EDMS 21:08 21:08 Troponin High Sensitivity+C.LAB.BRZ ordered. EDMS EDMS 21:08 21:08 Chest Single View+RAD.RAD.BRZ ordered. EDMS EDMS 22:48 22:16 rt sp
--- NOTE | 2024-06-17 22:17 | ER ---
Nurse's Notes [facility] Name: Argenis Jacome Age: 88 yrs Sex: Female : 1935 Arrival Date: 06/17/2024 Time: 20:26 Bed 6 Private MD: Latricia Buckley C Diagnosis: Atrial fibrillation with rapid ventricular rate Presentation: 06/17 20:49 Chief complaint: Patient's son or daughter states: blood pressure has been up and her me1 heart rate has been all over the place like she is going in and out of afib. Hx afib. c/o palpitations. Coronavirus screen: Vaccine status: Patient reports being unvaccinated. Ebola Screen: No symptoms or risks identified at this time. Initial Sepsis Screen: Does the patient meet any 2 criteria? HR > 90 bpm. Does the patient have a suspected source of infection? No. Patient's initial sepsis screen is negative. Risk Assessment: Do you want to hurt yourself or someone else? Patient reports no desire to harm self or others. Onset of symptoms is unknown. 20:49 Method Of Arrival: Wheelchair me1 20:49 Acuity: RAND 3 me1 Historical: - Allergies: 20:50 Digoxin (unable to eat); me1 - PMHx: 20:50 Depression; Atrial fibrillation; High Cholesterol; me1 - PSHx: 20:50 knee; me1 - Immunization history:: Adult Immunizations up to date. - Infectious Disease History:: Denies. - Social history:: Smoking status: Patient denies any tobacco usage or history of. - Family history:: not pertinent. Screenin/16 20:39 [facility] ED Fall Risk Assessment (Adult) History of falling in the last 3 months, ha1 including since admission No falls in past 3 months (0 pts) Confusion or Disorientation No (0 pts) Intoxicated or Sedated No (0 pts) Impaired Gait Yes (1 pt) Mobility Assist Device Used Yes (1 pt) Altered Elimination No (0 pt) Score/Fall Risk Level 3 or more points = High Risk Oriented to surroundings, Maintained a safe environment, Educated pt \T\ family on fall prevention, incl call for assistance when getting out of bed, Hourly rounding (assess needs \T\ fall precautionary measures) done, Apply high fall risk patient identification: yellow non skid footwear/ fall signage. Abuse screen: Denies threats or abuse. Denies injuries from another. Nutritional screening: No deficits noted. Tuberculosis screening: No symptoms or risk factors identified. Assessment: 06/17 20:37 General: Appears comfortable, Behavior is calm, cooperative. Pain: Denies pain. Neuro: ha1 Level of Consciousness is awake, alert, obeys commands, Oriented to person, place, time, situation. Cardiovascular: Capillary refill < 3 seconds Patient's skin is warm and dry. Cardiovascular: Reports palpitations, Denies chest pain. Respiratory: Airway is patent Respiratory effort is even, unlabored, Respiratory pattern is regular, symmetrical. GI: No signs and/or symptoms were reported involving the gastrointestinal system. Abdomen is round non-distended. 20:37 Derm: Skin is pink, warm \T\ dry. Musculoskeletal: Circulation, motion, and sensation ha1 intact. Range of motion: intact in all extremities. 21:47 Reassessment: Patient and/or family updated on plan of care and expected duration. Pain ha1 level reassessed. Patient is alert, oriented x 3, equal unlabored respirations, skin warm/dry/pink. 22:40 Reassessment: Patient and/or family updated on plan of care and expected duration. Pain ha1 level reassessed. Patient is alert, oriented x 3, equal unlabored respirations, skin warm/dry/pink. 23:06 Reassessment: report faxed and received. ha1 23:22 Reassessment: Patient and/or family updated on plan of care and expected duration. Pain ha1 level reassessed. Patient is alert, oriented x 3, equal unlabored respirations, skin warm/dry/pink. Vital Signs: 20:49 BP 123 / 78; Pulse 107; Resp 18; Temp 97.8; Pulse Ox 100% ; Weight 51.26 kg; Height 5 me1 ft. 3 in. ; Pain 0/10; 21:47 BP 115 / 71; Pulse 87; Resp 18 S; Pulse Ox 100% on R/A; ha1 22:30 BP 94 / 68; Pulse 101; Resp 18 S; Pulse Ox 100% on R/A; ha1 23:00 BP 122 / 79; Pulse 101; Resp 18 S; Pulse Ox 99% on R/A; ha1 20:49 Body Mass Index 20.02 (51.26 kg, 160.02 cm) me1 20:49 Pain Scale: Adult me1 ED Course: 20:27 Patient arrived in ED. am2 20:28 Latricia Buckley MD is Private Physician. am2 20:33 Tayo Jj MD is Attending Physician. rt 20:39 Patient has correct armband on for positive identification. Placed in gown. Bed in low ha1 position. Call light in reach. Side rails up X 1. 20:50 Triage completed. me1 20:50 Arm band placed on Patient placed in an exam room. me1 21:29 XRAY Chest (1 view) In Process Unspecified. EDMS 21:49 Genoveva Salmeron, PINA is Primary Nurse. al5 22:16 Latricia Buckley MD is Hospitalizing Provider. rt 06/18 00:00 Provided Education on: need for admit . ha1 00:00 No provider procedures requiring assistance completed. ha1 00:00 Patient admitted, IV remains in place. ha1 Administered Medications: 06/17 21:30 Drug: NS 0.9% IV 500 ml IV at calculated rate once; to be given as a bolus over 30 ha1 minutes Route: IV; Rate: calculated rate; Site: right antecubital; 23:23 Follow up: Response: No adverse reaction; IV Status: Completed infusion; IV Intake: ha1 500ml 21:35 Drug: Metoprolol IVP 5 mg IVP every 5 minutes; Hold for SBP < 100 or HR < 60. x3 Route: ha1 IVP; Site: right antecubital; 21:48 Follow up: Response: No adverse reaction; Marked relief of symptoms ha1 22:00 Follow up: Response: No adverse reaction; Marked relief of symptoms ha1 22:29 Follow up: Response: No adverse reaction al5 22:45 Drug: Eliquis PO 5 mg PO once Route: PO; ha1 23:24 Follow up: Response: No adverse reaction ha1 22:57 Drug: Flecainide PO 50 mg PO once Route: PO; ha1 23:24 Follow up: Response: No adverse reaction ha1 Medication: 21:50 VIS not applicable for this client. ha1 Intake: 23:23 IV: 500ml; Total: 500ml. ha1 Outcome: 22:16 Decision to Hospitalize by Provider. rt 06/18 00:00 Admitted to Med/surg accompanied by tech, via wheelchair, room 208, with chart, ha1 Condition: stable Instructed on the need for admit, Demonstrated understanding of instructions, 00:00 Patient left the ED. ha1 Signatures: Dispatcher [employer] EDGenoveva Rockwell am2 Joaquina Ignacio RN RN ha1 Tayo Jj MD MD rt Joy Colindres RN RN me1 Genoveva Salmeron RN RN al5 Corrections: (The following items were deleted from the chart) 00:18 00:17 Patient left the ED. ha1 ha1
[2024-06-17] MEDS: FLECAINIDE 100 MG TAB ONE (22:34)
[2024-06-17] MEDS ORDERED: APIXABAN 5 MG TABLET ONE (22:34)
[2024-06-18 00:44] VITALS: BMI 18.4
[2024-06-18 06:26] LABS: Albumin 2.9 g/dL (3.4-5.0); Albumin/Globulin Ratio 0.9 (1.1-1.8); Bilirubin Total 0.4 mg/dL (0.2-1.0); Globulin 3.1 g/dL (2.3-3.5)
[2024-06-18] MEDS ORDERED: APIXABAN 5 MG TABLET PO SCH (09:00)
[2024-06-18] MEDS: RIVAROXABAN 10 MG TABLET PO SCH (09:00)
[2024-06-18] MEDS: METOPROLOL TAR 25 MG TAB PO SCH (09:00)
[2024-06-18] MEDS: SERTRALINE HCL 50 MG TAB PO SCH (10:06)
[2024-06-18] MEDS: FLECAINIDE 100 MG TAB PO SCH (10:06)
[2024-06-18] MEDS: APIXABAN 2.5 MG TABLET PO SCH (10:07)
--- NOTE | 2024-06-18 11:47 | HP ---
Date of Admission: 06/18/2024 Chief Complaint: Palpitation and shortness of breath. History Of Present Illness: This is an 88-year-old female patient, who has a longstanding history of atrial fibrillation, on chronic anticoagulation therapy and antiarrhythmic medication. The patient sees Dr. Haney as her billing checker and also sees long chain quiller tender, Dr. Elder. She has been on flecainide for a long time and in the past, she was also taking metoprolol along with flecainide and Xarelto. On May 24, 2024, she came into our emergency room with weakness and palpitation type of feeling and after she was evaluated in our emergency room, she was transferred to [facility], where the patient's son says that she was kept in for about 3 days and then she was discharged to go to [facility] where she stayed until June 08, 2024. She was released to go home and on June 11, 2024, she came back to our emergency room with palpitation and after she was evaluated and treated in the emergency room, she was released to go back home. JASON/QUENTIN Voice ID: [id number] MTDD
--- NOTE | 2024-06-18 12:20 | HP ---
Date of Admission: 06/17/2024 Chief Complaint: Palpitation and shortness of breath. History Of Present Illness: This is an 88-year-old female patient, who has a longstanding history of atrial fibrillation, on chronic anticoagulation therapy and antiarrhythmic medication. The patient sees Dr. Haney as her rod placer and also sees windows admin, Dr. Elder. She has been on flecainide for a long time and in the past, she was also taking metoprolol along with flecainide and Xarelto. On May 24, 2024, she came into our emergency room with weakness and palpitation type of feeling and after she was evaluated in our emergency room, she was transferred to [facility], where the patient's son says that she was kept in for about 3 days and then she was discharged to go to [facility] where she stayed until June 08, 2024. She was released to go home and on June 11, 2024, she came back to our emergency room with palpitation and after she was evaluated and treated in the emergency room, she was released to go back home. The patient came back to our emergency room last night with complaints of palpitation and some shortness of breath and after she was evaluated in the emergency room, she was admitted to the hospital. When I saw her this morning, her son was present with her at bedside. Allergies: NO KNOWN ALLERGIES. Medications: Eliquis 2.5 mg 2 times a day, sertraline 25 mg daily, simvastatin 40 mg daily in the evening, flecainide, Entresto, losartan. Review of Systems: Cardiovascular: As mentioned above. ENT: Impaired hearing, which is chronic ongoing problem for her. All other systems reviewed and negative. Past Medical History: Significant for chronic atrial fibrillation, hypertension, hyperlipidemia, diverticulosis, osteoarthritis at multiple sites, and osteoporosis. 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 Family History: Father , had DE and stroke. Mother , had blood clot and thyroid disease. Brother with unknown type of cancer. Sister , had diabetes and stroke. Social History: Negative for smoking and alcohol use. Physical Examination: Vital Signs: Height 5 feet 5 inches, weight 111 pounds, temperature 97.3, pulse 92, respiratory rate 16, blood pressure 128/67, oxygen saturation 98% on room air. General: Awake, alert, oriented, not in distress. HEENT: Head atraumatic, normocephalic. Conjunctivae nonerythematous. Sclerae white. Mouth, no thrush or edema noted. Ears/Nose, no mass, lesion, discharge noted. Neck: Supple. No JVD, lymph nodes, bruit, thyromegaly noted. Lungs: Bilateral good equal air entry. Clear to auscultation. No rhonchi. No rales. Heart: Heart sounds are normal. Heart rhythm is irregularly irregular. No murmur. No gallop. Abdomen: Soft, bowel sounds normal. No guarding, rigidity, tenderness, mass, hepatosplenomegaly, distention, or bruit noted. Extremities: No leg edema. No calf tenderness. Skin: No rash, ulcer, cellulitis. Lymphatics: No lymph node enlargement in neck, supraclavicular, infraclavicular region. Neuro: No focal neurological deficit. Chest: Unremarkable. External Genitalia: Deferred. Rectal: Deferred. Laboratory Data: WBC 6.3, hemoglobin 12.9, platelets 156. Yesterday, sodium 139, potassium 4.1, chloride 109, bicarb 25, BUN 17, creatinine 1.03, and glucose 81. Liver function tests unremarkable. Troponin 7.9. ProBNP 1934. This morning, sodium 140, potassium 4, chloride 109, bicarb 25, BUN 15, creatinine 0.83, glucose 80. Liver function tests unremarkable. Chest x-ray, no acute cardiopulmonary changes. EKG, atrial fibrillation. Impression: 1. Chronic atrial fibrillation. 2. Hypertension. 3. Hyperlipidemia. 4. Osteoarthritis, multiple sites. 5. Osteoporosis. 6. Diverticulosis. Plan: We will go ahead and admit the patient to hospital for further evaluation and management of this problem. The patient is appropriate for inpatient and is expected to spend 2 midnights in hospital. For her atrial fibrillation, will consult rod placer, Dr. Carrillo and I have called and discussed details with him regarding details as I have along from the patient and the patient's son this morning and Dr. Carrillo will start her on amiodarone and then consider possibly cardioversion if necessary. We will continue her anticoagulation therapy, which is Eliquis 2.5 mg 2 times a day as she is taking. We will consider metoprolol if needed for rate control along with amiodarone or if we needed for blood pressure control. For hypertension, we will continue to monitor blood pressure, continue losartan and son will also bring details about all of her medications from home. We will monitor blood pressure and make necessary adjustment on medication if it becomes necessary. For hyperlipidemia, we will continue her statin therapy per order. Total time spent 85 minutes includes review of 3 different emergency room visit records, one from May 24, 2024; then June 11, 2024; and June 17, 2024; and also review of last office visit record from May 19, 2024; communication with the emergency room physician, communication with rod placer, and performing today's evaluation and management. I will see her tomorrow for followup. JASON/QUENTIN Voice ID: [id number] MTDD
[2024-06-18] MEDS: AMIODARONE HCL 150 MG in D5W 100 ML IV STA (14:23)
[2024-06-18] MEDS: AMIODARONE HCL 900 MG in Dextrose 5%-Water 482 ML IV SCH (14:23)
[2024-06-18] MEDS: ATORVASTATIN 20 MG TAB PO SCH (20:19)
[2024-06-19 05:58] LABS: Absolute Eosinophils 0.1 K/uL (0-0.5); Absolute Lymphocytes (CBC) 1.9 K/uL (0.7-4.9); Absolute Monocytes 0.6 K/uL (0.1-1.3); Absolute Neutrophil 3.9 K/uL (1.8-8.0); Basophils % 0.7 % (0-1.3); Eosinophils % 1.3 % (0-4.4); Hematocrit 38.3 % (36.0-45.0); Hemoglobin 12.7 g/dL (12.0-15.0); Lymphocytes % 28.8 % (15.3-44.8); MCH 31.4 pg (27.0-35.0); MCHC 33.2 g/dL (32.0-36.0); MCV 94.8 fL (80-100); Monocytes % 8.9 % (3.3-12.3); Neutrophils % 60.3 % (41.7-73.7); Nucleated Red Blood Cells % 0.1 % (0-0); Platelets 138 thou/uL (152-406); RBC Red Blood Cell Count 4.04 M/uL (3.86-4.86); Red Cell Distribution Width 13.9 % (12.1-15.2)
[2024-06-19 06:19] LABS: Anion Gap 7.9 mEq/L (5.0-15.0); Magnesium 2.1 mg/dL (1.6-2.4); Potassium 3.9 mEq/L (3.5-5.1); Thyroid Stimulating Hormone 3.41 uIU/mL (0.358-3.740)
[2024-06-19] MEDS: POTASSIUM CL SA 10 MEQ TAB PO ONE (10:21)
[2024-06-19] MEDS: FUROSEMIDE 20 MG/ 2ML VIAL IV ONE (10:21)
[2024-06-19] MEDS ORDERED: SODIUM CHLORIDE 0.9% 10ML INJ IV PRN (11:27)
[2024-06-19] MEDS: PANTOPRAZOLE 40 MG INJ IVP ONE (12:12)
[2024-06-19] MEDS: MAGNES/ALUMIN/SIMET 30ML UCUP PO ONE (12:13)
--- NOTE | 2024-06-19 13:14 | PN ---
Date of Progress Note: 06/19/2024 Subjective: The patient was seen this morning for followup. When I saw her, she was lying in bed, w as complaining of chest pain. She described as tightness type of feeling in the lower center part of her chest. At the same time, she also reported that she feels like she might be having some heartbu rn, indigestion. Upon further questioning regarding details of chest pain, she was not able to provi de me any more information than this is the best that I could get out of her and the report _. She was not in any respiratory distress. Objective: Vital Signs: Reviewed. HEENT: Unremarkable. Lungs: Clear to auscultation. No wheezing. No rales. Heart: Sounds normal. Abdomen: Soft. Bowel sounds normal. No guarding, rigidity, tenderness, distention. Extremities: No leg edema. Laboratory Data: This morning; WBC 6.5, hemoglobin 12.7, platelets 138. Sodium 139, potassium 3.9, chloride 108, bicarb 27, BUN 13, creatinine 0.83, glucose 98, magnesium 2.1. ProBNP 7700. TSH 3.410 . Impression: 1.Atrial fibrillation with rapid ventricular rate. 2.Chronic anticoagulation therapy. 3.Thrombocytopenia. 4.Chest pain. 5.Gastroesophageal reflux disease. 6.Congestive heart failure. Plan: We will go ahead and get troponin level done this morning which was ordered after I saw her, 2 0 mg of Lasix IV x1 dose and potassium chloride 20 mEq p.o. x1 dose was ordered for this morning. Th rombocytopenia will not require any further intervention except monitoring. We will continue amiodar one which was started by slasher sawyer yesterday after I saw her and continue anticoagulation therapy which is Eliquis. Recently, she was started on Entresto at outside hospital and we will continue arik t. We will see her tomorrow for followup. I have ordered 1 dose of Maalox and we will start her on pantoprazole per order and I will see her tomorrow for followup. JASON/MODL Voice ID: [id number] Report ID: [id number]
[2024-06-19] MEDS: AMIODARONE HCL 900 MG in Dextrose 5%-Water 482 ML IV SCH (13:25)
[2024-06-19] MEDS: SACUBITRIL/VALSARTAN 24/26 MG TAB PO SCH (20:32)
[2024-06-19 21:41] VITALS: O2SAT 96
[2024-06-20] MEDS: PANTOPRAZOLE 40 MG INJ IVP SCH (08:29)
[2024-06-20] MEDS: MAGNESIUM HYDROXIDE 8% 30 ML PO ONE (12:11)
[2024-06-20] MEDS: AMIODARONE HCL 200 MG TAB PO ONE (12:11)
[2024-06-20] MEDS: METOPROLOL XL 50 MG TAB PO ONE (12:16)
[2024-06-20 12:40] VITALS: BP 116/64; TEMP 97.6
[2024-06-20] MEDS: POLYETHYL GLY 3350 17 GM/DOSE PO ONE (13:33)
--- NOTE | 2024-06-20 15:12 | P.CNS ---
Date of Consult: 06/20/24 Chief Complaint: palpitations History of Present Illness: Patient with PMH of atrial fibrillation, chronic, presented with palpitations, report indigestion and epigastric discomfort, denies syncope, no chest pain, no SOB, no ROCA. Allergies digoxin Adverse Reaction (Verified 06/17/24 22:43) Nausea/Vomiting Home medications list reviewed: Yes Home Medications: Flecainide [Tambocor*] 50 mg PO 06/18/24 Losartan Potassium 25 mg PO 06/18/24 Metoprolol Tartrate [Lopressor] 25 mg PO 06/18/24 Sacubitril/Valsartan [Entresto 24 mg-26 mg Tablet] 24 mg PO 06/18/24 Sertraline [Zoloft*] 25 mg PO 06/18/24 Simvastatin [Zocor] 40 mg PO 06/18/24 - Social History Smoking Status: Unknown if ever smoked Alcohol use: No CD- Drugs: No Caffeine use: No Place of Residence: Home Review of Systems 10-point ROS is otherwise unremarkable Physical Examination Temp Pulse Resp BP Pulse Ox 97.6 F 93 H 18 116/64 95 06/20/24 12:00 06/20/24 12:00 06/20/24 12:00 06/20/24 12:00 06/20/24 12:00 General: Alert, In no apparent distress HEENT: Atraumatic, PERRLA, Mucous membr. moist/pink, EOMI, Sclerae nonicteric Neck: Supple, 2+ carotid pulse no bruit, No LAD, Without JVD or thyroid abnormality Respiratory: Clear to auscultation bilaterally, Normal air movement Cardiovascular: Irregular heart rate/rhythm Gastrointestinal: Normal bowel sounds, No tenderness Musculoskeletal: No tenderness Integumentary: No rashes Neurological: Normal gait, Normal speech, Normal tone, Normal affect Lymphatics: No axilla or inguinal lymphadenopathy - Problems (1) Atrial fibrillation Current Visit: Yes Status: Acute Plan: continue amiodarone 200 mg po BID Continue Eliquis 2.5 mg po BID Outpatient follow up with her real estate agent/broker for possible DECLAN DCCV or ablation.
[2024-06-20] MEDS ORDERED: AMIODARONE HCL 200 MG TAB PO SCH (21:00)
--- NOTE | 2024-06-23 13:11 | EKG ---
Test Date: 2024-06-17 Test Time: 20:46:50 Cyber Software Engineer: ANGELI MEASUREMENT RESULTS: Intervals: Rate: 110 HI: QRSD: 96 QT: 356 QTc: 481 [place]: P: HI: QRS: 58 T: 80 INTERPRETIVE STATEMENTS: Atrial fibrillation with rapid ventricular response Abnormal ECG Compared to ECG 06/11/2024 09:57:38 Prolonged QT interval no longer present Electronically Signed On 06-23-24 13:03:08 ENVIRONMENTAL PROGRAMS MANAGER by Darwin Bethea
== END 2024-06-20 15:28 | disposition home or self-care (01) | DRG 310 ==
LOC: ER 20:26 → ERHOLD 22:17 → 2ND 23:01
PROVIDERS: ADMIT Internal Medicine; ATTEND Internal Medicine
DX: I48.20 Chronic atrial fibrillation, unspecified (principal); E78.00 Pure hypercholesterolemia, unspecified; M19.09 Primary osteoarthritis, other specified site; M81.0 Age-related osteoporosis without current pathological fracture; K57.90 Diverticulosis of intestine, part unspecified, without perforation or abscess without bleeding; D69.6 Thrombocytopenia, unspecified; K21.9 Gastro-esophageal reflux disease without esophagitis; I50.9 Heart failure, unspecified; I11.0 Hypertensive heart disease with heart failure; Z88.8 Allergy status to other drugs, medicaments and biological substances; Z79.01 Long term (current) use of anticoagulants; Z79.899 Other long term (current) drug therapy
CPT/HCPCS: 36415; 71045; 80048; 80053; 80076; 83735; 83880; 84443; 84484; 85025; 93005; 96361; 96374; 99285; J0282; J1940; J2470; J7040; J7060

== ENCOUNTER 2024-08-24 19:44 | Emergency (ER) | payer OTHER, MEDICARE ==
--- NOTE | 2024-08-24 21:32 | RAD REPORT ---
EXAM: CT brain without contrast HISTORY: Headache status post fall. COMPARISON: None TECHNIQUE: Multiple contiguous axial images were obtained and a CT of the brain without contrast.. Sagittal and coronal reconstruction performed. Automated exposure control, adjustment of the mA and/or kV according to patient size, and/or iterative reconstruction. Unless otherwise specified, incidental f indings do not require dedicated imaging follow-up FINDINGS: Left parietal scalp hematoma. An intracranial bleed is not seen Ventricles are normal caliber No extra-axial fluid collection noted No significant hypodensity within the brain No fluid within the visualized sinuses or mastoids noted. IMPRESSION: No acute intracranial abnormality noted. If the patient continues to have symptoms to suggest an acute intracranial abnormality then MRI of th e brain would be recommended.
--- NOTE | 2024-08-24 21:38 | RAD REPORT ---
EXAM: C Spine Wo Con Clinical history: Neck pain status post fall COMPARISON: None TECHNIQUE: Multiple contiguous axial images were obtained in a CT of the cervical spine without contr ast. Sagittal and coronal reformats were performed. One or more of the following dose reduction techniques were used: Automated exposure control, adjustment of the mA and kV according to patient si ze, and iterative reconstruction. Unless otherwise specified, incidental findings do not require dedicated imaging follow-up. FINDINGS: No fracture or dislocation seen No high-grade stenosis visualized. Spondylosis most marked at C6-7. IMPRESSION: No fracture seen. If patient continues to have symptoms to suggest acute spinal pathology then MRI would be recommended .
--- NOTE | 2024-08-24 21:43 | RAD REPORT ---
EXAM: Thoracic Spine W/o Cont Clinical history: Back pain status post fall COMPARISON: None TECHNIQUE: Multiple contiguous axial images were obtained in a CT of the thoracic spine without contr ast. Sagittal and coronal reformats were performed. One or more of the following dose reduction techniques were used: Automated exposure control, adjustment of the mA and kV according to patient si ze, and iterative reconstruction. Unless otherwise specified, incidental findings do not require dedicated imaging follow-up. FINDINGS: No fracture seen. No dislocation. Stippled lucencies within several thoracic vertebral bodies probably hemangiomas. No high-grade stenosis seen. IMPRESSION: No fracture visualized If the patient continues to have symptoms to suggest spinal canal/spinal cord pathology then MRI woul d be recommended
--- NOTE | 2024-08-24 21:46 | RAD REPORT ---
EXAMINATION: CT LUMBAR SPINE WITHOUT CONTRAST CLINICAL INDICATION: Fall with back pain TECHNIQUE: Axial CT images were obtained through the lumbar spine in soft tissue and bone windows wit hout intravenous contrast. Coronal and Sagittal reformatted images were created from the data set. One or more of the following dose reduction techniques were used: Automated exposure control, adjustm ent of the mA and/ or kV according to patient size, and/or iterative reconstruction. Unless otherwise specified, incidental findings do not require dedicated imaging follow-up. COMPARISON: No prior exam. FINDINGS: For purposes of this dictation, it is assumed that there are 5 non rib-bearing lumbar type vertebrae, and the most caudal fully segmented lumbar vertebra is labeled L5. No fracture seen No dislocation. Spondylosis L4-5 appears to result in a moderate central spinal stenosis. Mild anterior subluxation L4 on L5. IMPRESSION: No fracture seen. 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
--- NOTE | 2024-08-24 22:05 | ER ---
Nurse's Notes [facility] Name: Argenis Jacome Age: 89 yrs Sex: Female : 1935 Arrival Date: 08/24/2024 Time: 19:44 Bed DX1 Private MD: Diagnosis: Fall on same level, unspecified;cephalohematoma Presentation: 08/24 20:20 Risk Assessment: Do you want to hurt yourself or someone else? Patient reports no iw desire to harm self or others. 20:21 Chief complaint: Patient states: fell at [place] about an hour ago, lost her balance , hit iw her head , fell back patel, no LOC, takes Eliquis. Coronavirus screen: At this time, the client does not indicate any symptoms associated with coronavirus-19. Ebola Screen: No symptoms or risks identified at this time. Initial Sepsis Screen: Does the patient meet any 2 criteria? No. Patient's initial sepsis screen is negative. Does the patient have a suspected source of infection? No. Patient's initial sepsis screen is negative. Onset of symptoms was August 24, 2024. 20:21 Method Of Arrival: Ambulatory iw 20:21 Acuity: RAND 3 iw Triage Assessment: 20:20 General: Appears in no apparent distress. Behavior is calm, cooperative. Pain: iw Complains of pain in back of head, posterior chest and back. Neuro: Level of Consciousness is awake, alert, obeys commands, Moves all extremities. Full function. Cardiovascular: Patient's skin is warm and dry. Historical: - Allergies: 20:19 Digoxin (unable to eat); iw - PMHx: 20:19 Atrial fibrillation; Depression; High Cholesterol; iw 20:23 Hypertensive disorder; Anemia; iw - PSHx: 20:19 knee; iw - Immunization history:: Adult Immunizations not up to date. - Infectious Disease History:: Denies. - Social history:: Smoking status: Patient denies any tobacco usage or history of. Screenin:10 [facility] ED Fall Risk Assessment (Adult) History of falling in the last 3 months, iw including since admission Yes- single mechanical fall (1 pt) Confusion or Disorientation No (0 pts) Intoxicated or Sedated No (0 pts) Impaired Gait Yes (1 pt) Mobility Assist Device Used Yes (1 pt) Altered Elimination No (0 pt) Score/Fall Risk Level 3 or more points = High Risk Oriented to surroundings, Maintained a safe environment. Abuse screen: Denies threats or abuse. Denies injuries from another. Nutritional screening: No deficits noted. Tuberculosis screening: No symptoms or risk factors identified. Assessment: 22:10 Reassessment: Patient appears in no apparent distress at this time. Patient and/or iw family updated on plan of care and expected duration. Pain level reassessed. Patient is alert, oriented x 3, equal unlabored respirations, skin warm/dry/pink. 22:17 Reassessment: Patient appears in no apparent distress at this time. Vital Signs: 20:20 BP 168 / 50; Pulse 53; Resp 16; Temp 98.2; Pulse Ox 98% on R/A; Weight 72.57 kg; Height iw 5 ft. 3 in. ; 20:20 Body Mass Index 28.34 (72.57 kg, 160.02 cm) ED Course: 19:47 Patient arrived in ED. [id number] 20:00 Evelia Kim MD is Attending Physician. [facility] 20:22 Triage completed. iw 20:22 Arm band placed on. iw 21:22 CT Head Brain wo Cont In Process Unspecified. EDMS 21:22 CT Thoracic Spine Wo Cont In Process Unspecified. EDMS 21:22 CT Lumbar Spine Wo Con In Process Unspecified. EDMS 21:22 C Spine Wo Con In Process Unspecified. EDMS 22:10 No provider procedures requiring assistance completed. Patient did not have IV access iw during this emergency room visit. Administered Medications: 22:10 Drug: HYDROcodone-acetaminophen PO 5 mg-325 mg 1 tabs PO once Route: PO; 22:17 Follow up: Response: No adverse reaction Medication: 22:10 VIS not applicable for this client. Outcome: 22:05 Discharge ordered by . 6 22:17 Discharged to home via wheelchair, with family, 22:17 Condition: stable 22:17 Discharge instructions given to patient, family, Instructed on discharge instructions, follow up and referral plans. Demonstrated understanding of instructions, follow-up care, 22:18 Patient left the ED. Signatures: Dispatcher [employer] Gely Bliss RN RN Gabriela Kim RN RN Katy Segura [facility] Evelia Kim MD MD sw6 Corrections: (The following items were deleted from the chart) 20: 20:21 Chief complaint: Patient states: fell at [place] about an hour ago, lost her balance iwiw
--- NOTE | 2024-08-24 22:05 | EDPHYS ---
Physician Documentation [facility] Name: Argenis Jacome Age: 89 yrs Sex: Female : 1935 Arrival Date: 08/24/2024 Time: 19:44 Bed DX1 Private MD: ED Physician Evelia Kim HPI: 08/24 20:32 This 89 yrs old Female presents to ER via Ambulatory with complaints of Fall sw6 Injury, Head Injury Without LOC-Adult, Dizziness. 20:32 Details of fall: The patient fell from an upright position, while walking. Onset: The sw6 symptoms/episode began/occurred 1 hour(s) ago. Associated injuries: The patient sustained injury to the head, hematoma. 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 she did fall backwards and hit her head. no LOC. ambulatory at the scene. is on eliquis for a h/o a fib. had ibuprofen patrol captain which has not helped. c/o RAMSEY and low back pain. no arm or leg pain. no cp or sob. denies feeling dizzy. she does not use a cane or walker for ambulation. here for eval. . 20:44 Severity of symptoms: At their worst the symptoms were mild, in the emergency sw6 department the symptoms are unchanged. Historical: - Allergies: 20:19 Digoxin (unable to eat); iw - PMHx: 20:19 Atrial fibrillation; Depression; High Cholesterol; iw 20:23 Hypertensive disorder; Anemia; iw - PSHx: 20:19 knee; iw - Immunization history:: Adult Immunizations not up to date. - Infectious Disease History:: Denies. - Social history:: Smoking status: Patient denies any tobacco usage or history of. ROS: 20:32 Constitutional: Negative for fever, chills, and weight loss, Neck: Negative for injury, sw6 pain, and swelling, Cardiovascular: Negative for chest pain, palpitations, and edema, Respiratory: Negative for shortness of breath, cough, wheezing, and pleuritic chest pain, Abdomen/GI: Negative for abdominal pain, nausea, vomiting, diarrhea, and constipation, 20:32 Constitutional: Positive for 20:32 Back: Positive for pain with movement, 20:32 All other systems are negative, Exam: 20:32 Constitutional: This is a well developed, well nourished patient who is awake, alert, sw6 and in no acute distress. Neck: Trachea midline, no thyromegaly or masses palpated, and no cervical lymphadenopathy. Supple, full range of motion without nuchal rigidity, or vertebral point tenderness. No Meningismus. Chest/axilla: Normal chest wall appearance and motion. Nontender with no deformity. No lesions are appreciated. Cardiovascular: Regular rate and rhythm with a normal S1 and S2. No gallops, murmurs, or rubs. Normal PMI, no JVD. No pulse deficits. Respiratory: Lungs have equal breath sounds bilaterally, clear to auscultation and percussion. No rales, rhonchi or wheezes noted. No increased work of breathing, no retractions or nasal flaring. Abdomen/GI: Soft, non-tender, with normal bowel sounds. No distension or tympany. No guarding or rebound. No evidence of tenderness throughout. MS/ Extremity: Pulses equal, no cyanosis. Neurovascular intact. Full, normal range of motion. 20:32 Head/face: Noted is hematoma, that is moderate, of the left side of the back of head, 20:32 Back: pain, that is very mild, of the lumbar area, no deformity or step-off to thoracic or lumbar spine. , Vital Signs: 20:20 BP 168 / 50; Pulse 53; Resp 16; Temp 98.2; Pulse Ox 98% on R/A; Weight 72.57 kg; Height iw 5 ft. 3 in. ; 20:20 Body Mass Index 28.34 (72.57 kg, 160.02 cm) iw MDM: 20:26 Medical Screening Exam initiated sw 20:32 Differential diagnosis: abrasion, closed head injury, contusion, fracture, sprain, sw6 strain. Data reviewed: vital signs, nurses notes. 22:02 Data reviewed: radiologic studies, CT scan. ED course: The patient is doing well here sw6 in the ER. The CT of her head, cervical spine, thoracic spine and lumbar spine showed no acute traumatic injuries. She remained stable here in the ER and is okay for discharge home with PCP follow-up.. 08/24 20:28 Order name: CT Head Brain wo Cont; Complete Time: 21:57 [facility] 08/24 21:57 Interpretation: No acute disease. sw6 08/24 20:28 Order name: CT Thoracic Spine Wo Cont; Complete Time: 21:57 sw6 08/24 21:57 Interpretation: No acute disease. 6 08/24 20:28 Order name: CT Lumbar Spine Wo Con; Complete Time: 21:57 sw6 08/24 21:57 Interpretation: No acute disease. sw6 08/24 20:40 Order name: C Spine Wo Con; Complete Time: 21:57 EDMS 08/24 21:58 Interpretation: No acute disease. sw6 Administered Medications: 22:10 Drug: HYDROcodone-acetaminophen PO 5 mg-325 mg 1 tabs PO once Route: PO; kl 22:17 Follow up: Response: No adverse reaction kl Disposition Summary: 08/24/24 22:05 Discharge Ordered Notes: Location: Home 6 Problem: new sw6 Symptoms: are unchanged sw6 Condition: Stable sw6 Diagnosis - Fall on same level, unspecified sw6 - cephalohematoma sw6 Discharge Instructions: - Discharge Summary Sheet sw6 - Hematoma sw6 - Fall Prevention in the Home, Adult, [id number] 6 Forms: - Medication Reconciliation Form sw6 - Antibiotic Education sw6 - Prescription Opioid Use sw6 - Patient Portal Instructions sw6 - Leadership Thank You Letter 6 Signatures: Dispatcher [employer] Gely Bliss RN RN kl Williams, Irene, RN RN iw Williams, Sandra, MD MD Corrections: (The following items were deleted from the chart) 20:40 20:29 Head C Spine MPR Wo Con+CT.RAD.BRZ ordered. EDMS EDMS
[2024-08-24] MEDS ORDERED: HYDROCODONE/APAP 5/325 MG TAB ONE (22:06)
[2024-08-24 23:08] VITALS: BP 168/50; TEMP 98.2; O2SAT 98
== END 2024-08-24 22:18 | disposition home or self-care (01) ==
LOC: ER 19:44
DX: S00.03XA Contusion of scalp, initial encounter (principal); M54.9 Dorsalgia, unspecified; W01.0XXD Fall on same level from slipping, tripping and stumbling without subsequent striking against object, subsequent encounter
CPT/HCPCS: 70450; 72125; 72128; 72131